=== PATIENT | female | born 1985 | race Caucasian/White ===

== ENCOUNTER 2018-04-08 07:00 | Day surgery (SDC) | payer OTHER ==
[~2018-04-08] VITALS: Ht 152.4 cm; Wt 49.9 kg
[2018-04-09] MEDS ORDERED: CODE1TAB37 PO (09:07)
== END 2018-04-09 08:00 | disposition home or self-care (01) ==
LOC: CIR.AMB 07:00 → SURH 12:15 → EDSTATUS 12:15 → SURH 14:45 → SURG 20:04 → O/R 20:04 → CIR.AMB 04-09 08:00 → SURG 04-09 11:14 → O/R 04-09 11:14
DX: N92.0 Excessive and frequent menstruation with regular cycle (principal); N72 Inflammatory disease of cervix uteri; N81.11 Cystocele, midline; N94.5 Secondary dysmenorrhea